=== PATIENT | male | born 2000 | race Caucasian/White ===

== ENCOUNTER 2018-05-22 12:46 | Day surgery (SDC) | payer OTHER ==
[~2018-05-22] VITALS: Ht 190.5 cm; Wt 87.2 kg
[2018-05-22 13:10] VITALS: BP 134/75
[2018-05-22 19:53] VITALS: BP 137/80
[2018-05-22 23:32] VITALS: BP 137/73
[2018-05-23 03:51] VITALS: BP 116/64
[2018-05-23 07:24] VITALS: BP 136/81
[2018-05-23] MEDS ORDERED: ENDOCET 5-3251 EACH PO (07:53)
== END 2018-05-23 10:05 | disposition home or self-care (01) ==
LOC: SDC 12:46 → 2SOUTH 17:37 → 3EAST 17:37 → ENRESERV 17:38 → 3EAST 19:21
PROC: 0PSB04Z Reposition Left Clavicle with Internal Fixation Device, Open Approach (ICD-10-PCS; principal; 2018-05-22)
DX: S42.022K Displaced fracture of shaft of left clavicle, subsequent encounter for fracture with nonunion (principal); W19.XXXA Unspecified fall, initial encounter
CPT/HCPCS: 71045; 73000; 76000; C1713; G0378; J0131; J0330; J0690; J1100; J1170; J2250; J2405; J3010

== ENCOUNTER → 2018-05-23 | Outpatient (CLI) | payer OTHER ==
[~2018-05-23] MED LIST: ENDOCET 5-3251 EACH PO
== END | disposition home or self-care (01) ==
LOC: AMB 11:30
DX: T81.89XA Other complications of procedures, not elsewhere classified, initial encounter (principal); K14.8 Other diseases of tongue
CPT/HCPCS: 99212